=== PATIENT | male | born 1935 | race Caucasian/White ===

== ENCOUNTER 2019-01-21 10:00 | Emergency (ER) | payer MEDICARE, OTHER ==
[~2019-01-21] VITALS: Ht 167.6 cm; Wt 104.5 kg
[~2019-01-21 10:00] MED LIST: ALTA5CAP; ASPI325T; CALCCHW12 PO; LOPR50TA; NITR0.4S; NORV5TAB; PLAV75TA2; ROSU10TA
[2019-01-21 10:14] VITALS: BP 155/71
[2019-01-21] MEDS ORDERED: ATOR80TA59 PO (10:19)
[2019-01-21] MEDS ORDERED: ASPI81TA85 PO (10:19)
[2019-01-21] MEDS ORDERED: AMLO10TA5 PO (10:19)
[2019-01-21] MEDS ORDERED: CLOP75TA2 PO (10:19)
[2019-01-21] MEDS ORDERED: RAMI1CAP26 PO (10:19)
[2019-01-21] MEDS ORDERED: METO1TAB32 PO (10:19)
--- NOTE | 2019-01-21 11:10 | REP ---
Clinical: Pain with recent trauma/fall. Technique: AP, lateral, bilateral oblique views of the right elbow. Findings: Generalized age-related changes are appreciated. Overlying soft tissue swelling noted. No obvious acute fracture identified. Impression: Diffuse soft tissue swelling. Age-related degenerative changes identified. No obvious acute fracture or dislocation. Electronically Signed by Miguelito Rees MD 01/21/2019 11:02 A
--- NOTE | 2019-01-21 11:13 | REP ---
CT Head without contrast HISTORY: Fall COMPARISON: None An area of decreased attenuation is present in the left basal ganglia. This represents an old lacunar infarction. Areas of decreased attenuation are present in the periventricular and subcortical white matter. This represents small-vessel ischemic disease. There is no intraparenchymal hemorrhage, acute infarct, mass or midline shift. The ventricular system and cortical sulci are dilated consistent with mild volume loss. There is no extra cerebral collection. There is no fracture. The visualized sinuses are clear. IMPRESSION: 1. Old left basal ganglia lacunar infarction. 2. Small vessel ischemic disease. 3. Mild volume loss. Electronically Signed by Didier Guzman MD 01/21/2019 11:04 A
== END 2019-01-21 11:33 | disposition home or self-care (01) ==
LOC: M ED 10:00 → EDBD 10:00 → M ED 11:33
DX: S00.01XA Abrasion of scalp, initial encounter (principal); S40.021A Contusion of right upper arm, initial encounter; S41.102A Unspecified open wound of left upper arm, initial encounter; V48.4XXA Person boarding or alighting a car injured in noncollision transport accident, initial encounter; Y92.89 Other specified places as the place of occurrence of the external cause; I10 Essential (primary) hypertension; K21.9 Gastro-esophageal reflux disease without esophagitis; R51 Headache; Z91.81 History of falling; Z79.899 Other long term (current) drug therapy; Z79.02 Long term (current) use of antithrombotics/antiplatelets; Z87.891 Personal history of nicotine dependence

== ENCOUNTER 2022-09-21 05:02 | Emergency (ER) | payer MEDICARE, OTHER ==
[~2022-09-21 05:02] MED LIST changes: +AMLO1TAB25 PO; +ASPI81TA86 PO; +ATOR80TA59 PO; +CLOP75TA2 PO; +CRES10TA32; +METO1TAB32 PO; -NITR0.4S; +NITR0.4S PO; +RAMI1CAP26 PO; -ROSU10TA
[2022-09-21 06:59] LABS: BASO % 0.2 % (0.0-1.0); EOS % 0.2 % (0.0-3.0); HEMATOCRIT 34.3 % (42.0-52.0); HEMOGLOBIN 11.1 g/dl (13.5-17.5); LYMPH # 1.1 10^3/uL (1.5-5.0); LYMPH % 8.6 % (24.0-44.0); MEAN CORPUSCULAR HEMOGLOBIN 30.2 pg (27.0-33.0); MEAN CORPUSCULAR HGB CONC 32.4 g/dl (32.0-36.5); MEAN CORPUSCULAR VOLUME 93.2 fl (80.0-96.0); MONO # 1.3 10^3/uL (0.0-0.8); MONO % 10.5 % (2.0-8.0); NEUTROPHILS # 9.8 10^3/uL (1.5-8.5); NEUTROPHILS % 80.3 % (36.0-66.0); PLATELET COUNT, AUTOMATED 254 10^3/uL (150-450); RED BLOOD COUNT 3.68 10^6/uL (4.30-6.10); WHITE BLOOD COUNT 12.2 10^3/uL (4.0-10.0)
[2022-09-21 07:17] LABS: INR 0.91; PROTHROMBIN TIME 12.4 SECONDS (12.5-14.5)
[2022-09-21 07:18] LABS: PARTIAL THROMBOPLASTIN TIME 26.6 SECONDS (24.8-34.2)
[2022-09-21 07:37] LABS: ALBUMIN 3.6 GM/DL (3.2-5.2); ALT/SGPT 26 U/L (12-78); BILIRUBIN,DIRECT 0.3 MG/DL (0.0-0.2); BILIRUBIN,TOTAL 0.8 MG/DL (0.2-1.0); BLOOD UREA NITROGEN 14 MG/DL (7-18); CALCIUM LEVEL 9.5 MG/DL (8.8-10.2); CARBON DIOXIDE LEVEL 26 MEQ/L (21-32); CHLORIDE LEVEL 99 MEQ/L (98-107); CREATININE FOR GFR 0.83 MG/DL (0.70-1.30); FREE T4 1.19 NG/DL (0.76-1.46); GLOMERULAR FILTRATION RATE > 60.0 (>35); GLUCOSE, FASTING 109 MG/DL (70-100); POTASSIUM SERUM 4.4 MEQ/L (3.5-5.1); SODIUM LEVEL 131 MEQ/L (136-145); THYROID STIMULATING HORMONE 0.895 uIU/ML (0.358-3.740); TOTAL PROTEIN 6.7 GM/DL (6.4-8.2)
[2022-09-21] MEDS ORDERED: INFANRIX VACCINE SYRINGE (DIPHTH/TET/ACEL PERTUS PEDIATRIC) IM.IMMUN ONE (07:50)
[2022-09-21] MEDS ORDERED: BOOSTRIX/ADACEL VACCINE (DIPHTH/PERTUSS/ACELL/TETANUS) 0.5ML SYR IM.IMMUN ONE (07:55)
[2022-09-21] MEDS ORDERED: BACITRACIN OINTMENT 30GM TUBE TOP ONE (09:35)
[2022-09-21] MEDS ORDERED: BACI500O21 TOP (09:50)
[2022-09-21 10:20] VITALS: BP 148/88
[2022-09-22] MEDS ORDERED: ASPI81TA26 PO (20:05)
[2022-09-22] MEDS ORDERED: CALCD50TA PO (20:05)
[2022-09-22] MEDS ORDERED: LUTE20CA7 PO (20:08)
[2022-09-22] MEDS ORDERED: MELA10CA PO (20:08)
[2022-09-22] MEDS ORDERED: FLOM0.4C39 PO (20:08)
[2022-09-22] MEDS ORDERED: NITR0.4S14 SL (20:09)
== END 2022-09-21 10:22 | disposition home or self-care (01) ==
LOC: EDBD 05:02 → M ED 05:02
DX: S51.811A Laceration without foreign body of right forearm, initial encounter (principal); W01.0XXA Fall on same level from slipping, tripping and stumbling without subsequent striking against object, initial encounter; I10 Essential (primary) hypertension; I25.2 Old myocardial infarction; Z79.01 Long term (current) use of anticoagulants

== ENCOUNTER 2022-09-22 14:03 | Observation (INO) | payer MEDICARE ==
[~2022-09-22] VITALS: Ht 167.6 cm; Wt 130.8 kg
[~2022-09-22 14:03] MED LIST changes: +BACI500O21 TOP
[2022-09-22 15:40] LABS: HEMATOCRIT 29.7 % (42.0-52.0); HEMOGLOBIN 9.6 g/dl (13.5-17.5); MEAN CORPUSCULAR HEMOGLOBIN 30.5 pg (27.0-33.0); MEAN CORPUSCULAR HGB CONC 32.3 g/dl (32.0-36.5); MEAN CORPUSCULAR VOLUME 94.3 fl (80.0-96.0); PLATELET COUNT, AUTOMATED 267 10^3/uL (150-450); RED BLOOD COUNT 3.15 10^6/uL (4.30-6.10); WHITE BLOOD COUNT 10.6 10^3/uL (4.0-10.0)
[2022-09-22 17:16] LABS: BLOOD UREA NITROGEN 18 MG/DL (7-18); CARBON DIOXIDE LEVEL 28 MEQ/L (21-32); CHLORIDE LEVEL 103 MEQ/L (98-107); CREATININE FOR GFR 0.92 MG/DL (0.70-1.30); GLOMERULAR FILTRATION RATE > 60.0 (>35); GLUCOSE, FASTING 148 MG/DL (70-100); POTASSIUM SERUM 4.7 MEQ/L (3.5-5.1); SODIUM LEVEL 137 MEQ/L (136-145)
[2022-09-22] MEDS ORDERED: ceFAZolin SOD 1 GM in D5W MINI-BAG PLUS 50 ML IV ONE (17:45)
[2022-09-22 17:48] LABS: RSV AMPLIFICATION NEGATIVE (NEGATIVE)
[2022-09-22] MEDS ORDERED: METOPROLOL SUCC *XL* 25MG TAB (TopROL *XL*) PO ONE (18:20)
[2022-09-22] MEDS: FUROSEMIDE 20MG/2ML VIAL (J1940) IV SCH (18:47)
[2022-09-22] MEDS ORDERED: CALCD50TA PO (20:05)
[2022-09-22] MEDS ORDERED: ASPI81TA26 PO (20:05)
[2022-09-22] MEDS ORDERED: MELA10CA PO (20:08)
[2022-09-22] MEDS ORDERED: LUTE20CA7 PO (20:08)
[2022-09-22] MEDS ORDERED: FLOM0.4C39 PO (20:08)
[2022-09-22] MEDS ORDERED: NITR0.4S14 SL (20:09)
[2022-09-22] MEDS ORDERED: HOME MED LIST COMPLETE! XX SCH (20:10)
[2022-09-22 20:25] VITALS: BP 130/62
[2022-09-22] MEDS: ACETAMINOPHEN TAB 650MG DOSE (2X325MG) PO PRN (21:10)
[2022-09-22] MEDS ORDERED: NITROGLYCERIN 0.4 MG SUBL TABLET SL PRN (22:25)
[2022-09-22] MEDS ORDERED: KETOROLAC 30 MG/ML 1ML VIAL IV ONE (22:25)
[2022-09-22] MEDS: RAMELTEON 8 MG TAB (ROZEREM) PO PRN (22:37)
[2022-09-22 22:46] LABS: FREE T4 1.13 NG/DL (0.76-1.46); NT-PRO BNP 384 PG/ML (<450)
[2022-09-23] VITALS (15 sets, daily range): BP systolic 96–157; BP diastolic 47–70
[2022-09-23 02:07] LABS: APPEARANCE, URINE MANUAL CLEAR (CLEAR); COLOR, URINE MANUAL YELLOW (YELLOW)
[2022-09-23 02:08] LABS: BILIRUBIN, URINE MANUAL NEGATIVE (NEGATIVE); BLOOD URINE MANUAL NEGATIVE (NEGATIVE); GLUCOSE, URINE (UA) MANUAL NEGATIVE (NEGATIVE); KETONE, URINE MANUAL NEGATIVE (NEGATIVE); LEUKOCYTE ESTERASE, URINE MAN NEGATIVE (NEGATIVE); NITRITE, URINE MANUAL NEGATIVE (NEGATIVE); PROTEIN, URINE MANUAL NEGATIVE (NEGATIVE); SPECIFIC GRAVITY,URINE MANUAL 1.015 (1.002-1.035); UROBILINOGEN, URINE MANUAL NORMAL (NORMAL)
[2022-09-23 07:34] LABS: ALBUMIN 2.7 GM/DL (3.2-5.2); ALT/SGPT 27 U/L (12-78); BILIRUBIN,TOTAL 0.5 MG/DL (0.2-1.0); BLOOD UREA NITROGEN 19 MG/DL (7-18); CALCIUM LEVEL 8.3 MG/DL (8.8-10.2); CARBON DIOXIDE LEVEL 28 MEQ/L (21-32); CHLORIDE LEVEL 104 MEQ/L (98-107); CREATININE FOR GFR 0.81 MG/DL (0.70-1.30); GLOMERULAR FILTRATION RATE > 60.0 (>35); GLUCOSE, FASTING 102 MG/DL (70-100); POTASSIUM SERUM 3.8 MEQ/L (3.5-5.1); SODIUM LEVEL 136 MEQ/L (136-145); TOTAL PROTEIN 5.1 GM/DL (6.4-8.2)
[2022-09-23 08:00] LABS: BASO % 0.3 % (0.0-1.0); EOS # 0.3 10^3/uL (0.0-0.5); EOS % 4.2 % (0.0-3.0); HEMATOCRIT 24.7 % (42.0-52.0); HEMOGLOBIN 7.9 g/dl (13.5-17.5); LYMPH # 1.6 10^3/uL (1.5-5.0); LYMPH % 25.6 % (24.0-44.0); MEAN CORPUSCULAR HEMOGLOBIN 29.9 pg (27.0-33.0); MEAN CORPUSCULAR VOLUME 93.6 fl (80.0-96.0); MONO % 15.9 % (2.0-8.0); NEUTROPHILS # 3.5 10^3/uL (1.5-8.5); NEUTROPHILS % 53.8 % (36.0-66.0); PLATELET COUNT, AUTOMATED 212 10^3/uL (150-450); RED BLOOD COUNT 2.64 10^6/uL (4.30-6.10); WHITE BLOOD COUNT 6.4 10^3/uL (4.0-10.0)
[2022-09-23] MEDS ORDERED: ASPIRIN 81MG ENTERIC TABLET PO SCH (09:00)
[2022-09-23] MEDS: FUROSEMIDE 20MG/2ML VIAL (J1940) IV SCH ×2 (10:35→20:06)
[2022-09-23] MEDS: TAMSULOSIN 0.4 MG CAP PO SCH (10:36)
[2022-09-23] MEDS: FOLIC ACID 1MG TAB PO SCH (10:37)
[2022-09-23] MEDS: ramipriL 5 MG CAP PO SCH (10:37)
[2022-09-23] MEDS: METOPROLOL SUCC *XL* 25MG TAB (TopROL *XL*) PO SCH (10:37)
[2022-09-23] MEDS: ATORVASTATIN 20 MG TAB PO SCH (10:38)
[2022-09-23] MEDS: THIAMINE 100 MG TAB PO SCH (10:38)
[2022-09-23] MEDS ORDERED: FUROSEMIDE 20MG/2ML VIAL (J1940) IV ONE (12:00)
[2022-09-23] MEDS: ACETAMINOPHEN TAB 650MG DOSE (2X325MG) PO PRN ×2 (13:53→20:06)
[2022-09-23] MEDS: MIRALAX *UNIT DOSE* 17GM PACKET PO SCH (18:30)
[2022-09-23 19:42] LABS: HEMATOCRIT 28.8 % (42.0-52.0); HEMOGLOBIN 9.5 g/dl (13.5-17.5)
[2022-09-23] MEDS: DOCUSATE SODIUM 100MG CAPSULE PO SCH (20:04)
[2022-09-23] MEDS: RAMELTEON 8 MG TAB (ROZEREM) PO PRN (20:05)
[2022-09-24 05:25] VITALS: BP 123/49
[2022-09-24 05:46] LABS: BASO % 0.4 % (0.0-1.0); EOS # 0.4 10^3/uL (0.0-0.5); EOS % 4.9 % (0.0-3.0); HEMATOCRIT 30.2 % (42.0-52.0); HEMOGLOBIN 9.6 g/dl (13.5-17.5); LYMPH # 1.7 10^3/uL (1.5-5.0); LYMPH % 21.3 % (24.0-44.0); MEAN CORPUSCULAR HEMOGLOBIN 29.2 pg (27.0-33.0); MEAN CORPUSCULAR HGB CONC 31.8 g/dl (32.0-36.5); MEAN CORPUSCULAR VOLUME 91.8 fl (80.0-96.0); MONO # 1.1 10^3/uL (0.0-0.8); MONO % 12.9 % (2.0-8.0); NEUTROPHILS # 4.9 10^3/uL (1.5-8.5); NEUTROPHILS % 60.1 % (36.0-66.0); PLATELET COUNT, AUTOMATED 213 10^3/uL (150-450); RED BLOOD COUNT 3.29 10^6/uL (4.30-6.10); WHITE BLOOD COUNT 8.2 10^3/uL (4.0-10.0)
[2022-09-24] MEDS: ACETAMINOPHEN TAB 650MG DOSE (2X325MG) PO PRN (05:48)
[2022-09-24 06:11] LABS: BLOOD UREA NITROGEN 19 MG/DL (7-18); CALCIUM LEVEL 8.5 MG/DL (8.8-10.2); CARBON DIOXIDE LEVEL 28 MEQ/L (21-32); CHLORIDE LEVEL 102 MEQ/L (98-107); GLOMERULAR FILTRATION RATE > 60.0 (>35); GLUCOSE, FASTING 108 MG/DL (70-100); POTASSIUM SERUM 4.2 MEQ/L (3.5-5.1); SODIUM LEVEL 135 MEQ/L (136-145)
[2022-09-24] MEDS: DOCUSATE SODIUM 100MG CAPSULE PO SCH (09:00)
[2022-09-24] MEDS ORDERED: FUROSEMIDE 20 MG TAB PO SCH (09:00)
[2022-09-24] MEDS: MIRALAX *UNIT DOSE* 17GM PACKET PO SCH (09:00)
[2022-09-24] MEDS ORDERED: THIA100TA PO (10:08)
[2022-09-24] MEDS ORDERED: FURO20TA2 PO (10:08)
[2022-09-24] MEDS ORDERED: MIRA1POW3 PO (10:08)
[2022-09-24] MEDS ORDERED: FOLI1TAB11 PO (10:08)
[2022-09-24] MEDS: TAMSULOSIN 0.4 MG CAP PO SCH (10:10)
[2022-09-24] MEDS: FOLIC ACID 1MG TAB PO SCH (10:10)
[2022-09-24] MEDS: THIAMINE 100 MG TAB PO SCH (10:11)
[2022-09-24] MEDS: ATORVASTATIN 20 MG TAB PO SCH (10:11)
[2022-09-24] MEDS: METOPROLOL SUCC *XL* 25MG TAB (TopROL *XL*) PO SCH (10:12)
[2022-09-24 10:13] VITALS: BP 124/49
[2022-09-24] MEDS: ramipriL 5 MG CAP PO SCH (10:13)
== END 2022-09-24 11:39 | disposition home health service (06) ==
LOC: M ED 14:03 → M ED INP 14:04 → M MSPAV 18:30
PROVIDERS: ADMIT Internal Medicine; ATTEND Internal Medicine
DX: S01.312A Laceration without foreign body of left ear, initial encounter (principal); W19.XXXA Unspecified fall, initial encounter; Y92.008 Other place in unspecified non-institutional (private) residence as the place of occurrence of the external cause; Y93.9 Activity, unspecified; Y99.9 Unspecified external cause status; D62 Acute posthemorrhagic anemia; E66.01 Morbid (severe) obesity due to excess calories; I10 Essential (primary) hypertension; E78.5 Hyperlipidemia, unspecified; R26.89 Other abnormalities of gait and mobility; R60.0 Localized edema; Z79.82 Long term (current) use of aspirin; I25.10 Atherosclerotic heart disease of native coronary artery without angina pectoris; I25.2 Old myocardial infarction; Z98.61 Coronary angioplasty status; F10.20 Alcohol dependence, uncomplicated; Z79.899 Other long term (current) drug therapy
CPT/HCPCS: 12016; 36415; 36430; 70450; 71045; 72125; 80048; 80053; 81002; 83880; 84439; 84443; 85014; 85018; 85025; 85027; 86850; 86900; 86901; 86920; 87631; 93005; 93306; 93970; 96365; 96375; 96376; 97116; 97161; 97530; 99285; G0378; J0690; J1885; J1940; P9016

== ENCOUNTER → 2022-09-27 | Outpatient (CLI) | payer MEDICARE ==
[~2022-09-27] MED LIST changes: +ASPI81TA26 PO; +CALCD50TA PO; +FLOM0.4C39 PO; +FOLI1TAB11 PO; +FURO20TA2 PO; +LUTE20CA7 PO; +MELA10CA PO; +MIRA1POW3 PO; +NITR0.4S14 SL; +THIA100TA PO
[2022-09-27 17:30] LABS: HEMATOCRIT 30.8 % (42.0-52.0); MEAN CORPUSCULAR HEMOGLOBIN 29.8 pg (27.0-33.0); MEAN CORPUSCULAR HGB CONC 32.5 g/dl (32.0-36.5); MEAN CORPUSCULAR VOLUME 91.7 fl (80.0-96.0); PLATELET COUNT, AUTOMATED 274 10^3/uL (150-450); RED BLOOD COUNT 3.36 10^6/uL (4.30-6.10); WHITE BLOOD COUNT 8.6 10^3/uL (4.0-10.0)
[2022-09-27 18:06] LABS: BLOOD UREA NITROGEN 22 MG/DL (7-18); CARBON DIOXIDE LEVEL 27 MEQ/L (21-32); CHLORIDE LEVEL 101 MEQ/L (98-107); CREATININE FOR GFR 0.79 MG/DL (0.70-1.30); GLOMERULAR FILTRATION RATE > 60.0 (>35); GLUCOSE, FASTING 106 MG/DL (70-100); POTASSIUM SERUM 4.2 MEQ/L (3.5-5.1); SODIUM LEVEL 133 MEQ/L (136-145)
== END ==
LOC: M WUC 15:28
PROVIDERS: ATTEND Internal Medicine
DX: S01.312D Laceration without foreign body of left ear, subsequent encounter (principal); X58.XXXD Exposure to other specified factors, subsequent encounter

== ENCOUNTER → 2025-02-24 | Outpatient (CLI) | payer MEDICARE ==
[~2025-02-24] MED LIST changes: -MIRA1POW3 PO; +MIRA33506 PO; +RAMI10CA64 PO; -RAMI1CAP26 PO
[2025-02-24 13:15] LABS: FERRITIN 146.3 NG/ML (10.5-307.3)
== END ==
LOC: M WUC 11:14
PROVIDERS: ATTEND Internal Medicine
DX: D64.9 Anemia, unspecified (principal); R10.9 Unspecified abdominal pain